=== PATIENT | female | born 1960 | race Caucasian/White ===

== ENCOUNTER 2018-01-20 08:54 | Outpatient (CLI) | payer OTHER | END 2018-01-20 09:00 | disposition home or self-care (01) | LOC: NUCLEAR 08:54 | DX: K81.1 Chronic cholecystitis (principal); K30 Functional dyspepsia | CPT/HCPCS: 78227; A9537; J2805 ==

== ENCOUNTER 2021-02-09 08:12 | Outpatient (CLI) | payer OTHER | END 2021-02-09 08:18 | disposition home or self-care (01) | LOC: LAB 08:12 | DX: N39.0 Urinary tract infection, site not specified (principal); E11.9 Type 2 diabetes mellitus without complications; E78.2 Mixed hyperlipidemia; K71.6 Toxic liver disease with hepatitis, not elsewhere classified; M32.9 Systemic lupus erythematosus, unspecified ==

== ENCOUNTER 2021-04-15 13:10 | Outpatient (CLI) | payer OTHER | END 2021-04-15 13:24 | disposition home or self-care (01) | LOC: SONOGRAMA 13:10 → MAMO-SONO 13:15 → SONOGRAMA 13:24 | PROVIDERS: ATTEND Internal Medicine Cardiovascular Disease | DX: E04.2 Nontoxic multinodular goiter (principal); E05.80 Other thyrotoxicosis without thyrotoxic crisis or storm ==

== ENCOUNTER 2021-06-04 11:19 | Outpatient (CLI) | payer OTHER | END 2021-06-04 11:32 | disposition home or self-care (01) | LOC: MRI 11:19 | PROVIDERS: ATTEND Orthopaedic Surgery | DX: M25.562 Pain in left knee (principal); M94.262 Chondromalacia, left knee | CPT/HCPCS: 73721 ==

== ENCOUNTER 2021-07-26 11:30 | Outpatient (CLI) | payer OTHER | END 2021-07-26 11:36 | disposition home or self-care (01) | LOC: LAB 11:30 | PROVIDERS: ATTEND Internal Medicine Endocrinology, Diabetes & Metabolism | DX: E03.8 Other specified hypothyroidism (principal) ==

== ENCOUNTER 2021-09-20 12:12 | Outpatient (CLI) | payer OTHER | END 2021-09-20 12:19 | disposition home or self-care (01) | LOC: LAB 12:12 | PROVIDERS: ATTEND Internal Medicine Endocrinology, Diabetes & Metabolism | DX: E03.8 Other specified hypothyroidism (principal); E53.8 Deficiency of other specified B group vitamins ==

== ENCOUNTER 2021-12-13 08:43 | Outpatient (CLI) | payer OTHER | END 2021-12-13 09:21 | disposition home or self-care (01) | LOC: LAB 08:43 | PROVIDERS: ATTEND General Practice | DX: I11.9 Hypertensive heart disease without heart failure (principal); E11.69 Type 2 diabetes mellitus with other specified complication; N39.0 Urinary tract infection, site not specified; K62.5 Hemorrhage of anus and rectum; N18.30 Chronic kidney disease, stage 3 unspecified; D64.9 Anemia, unspecified; E55.9 Vitamin D deficiency, unspecified; B20 Human immunodeficiency virus [HIV] disease; A64 Unspecified sexually transmitted disease ==

== ENCOUNTER → 2021-12-13 | Outpatient (CLI) | payer OTHER | END | disposition home or self-care (01) | LOC: MAMO-SONO 11:11 | PROVIDERS: ATTEND General Practice | DX: E03.9 Hypothyroidism, unspecified (principal); E04.1 Nontoxic single thyroid nodule; E04.8 Other specified nontoxic goiter; E04.9 Nontoxic goiter, unspecified; R91.1 Solitary pulmonary nodule; Z13.820 Encounter for screening for osteoporosis; M85.9 Disorder of bone density and structure, unspecified; Z12.39 Encounter for other screening for malignant neoplasm of breast; Z12.31 Encounter for screening mammogram for malignant neoplasm of breast; M19.072 Primary osteoarthritis, left ankle and foot ==

== ENCOUNTER 2021-12-18 11:51 | Outpatient (CLI) | payer OTHER | END 2021-12-18 15:55 | disposition home or self-care (01) | LOC: LAB 11:51 | PROVIDERS: ATTEND Specialist | DX: E11.69 Type 2 diabetes mellitus with other specified complication (principal); I11.9 Hypertensive heart disease without heart failure; E78.49 Other hyperlipidemia; N39.0 Urinary tract infection, site not specified; E03.9 Hypothyroidism, unspecified; K62.5 Hemorrhage of anus and rectum; N18.30 Chronic kidney disease, stage 3 unspecified; D64.9 Anemia, unspecified; E55.9 Vitamin D deficiency, unspecified; B20 Human immunodeficiency virus [HIV] disease; A64 Unspecified sexually transmitted disease ==

== ENCOUNTER 2021-12-23 09:41 | Outpatient (CLI) | payer OTHER | END 2021-12-23 09:43 | disposition home or self-care (01) | LOC: LAB 09:41 | PROVIDERS: ATTEND Internal Medicine Endocrinology, Diabetes & Metabolism | DX: E55.9 Vitamin D deficiency, unspecified (principal) ==

== ENCOUNTER 2021-12-23 11:10 | Outpatient (CLI) | payer OTHER | END 2021-12-23 11:13 | disposition home or self-care (01) | LOC: NUCLEAR 11:10 | PROVIDERS: ATTEND General Practice | DX: M81.0 Age-related osteoporosis without current pathological fracture (principal) ==

== ENCOUNTER → 2022-04-23 09:53 | Outpatient (CLI) | payer OTHER | END | disposition home or self-care (01) | LOC: LAB 09:53 | PROVIDERS: ATTEND Internal Medicine | DX: E05.90 Thyrotoxicosis, unspecified without thyrotoxic crisis or storm (principal); I10 Essential (primary) hypertension ==

== ENCOUNTER 2022-05-28 07:10 | Outpatient (CLI) | payer OTHER | END 2022-05-28 07:12 | disposition home or self-care (01) | LOC: NUCLEAR 07:10 | PROVIDERS: ATTEND General Practice | DX: M81.0 Age-related osteoporosis without current pathological fracture (principal) | CPT/HCPCS: 78315; A9503 ==

== ENCOUNTER → 2023-09-09 | Outpatient (CLI) | payer OTHER | END | disposition home or self-care (01) | LOC: NUCLEAR 07:00 | PROVIDERS: ATTEND Internal Medicine | DX: E05.90 Thyrotoxicosis, unspecified without thyrotoxic crisis or storm (principal) ==

== ENCOUNTER 2023-09-10 07:12 | Outpatient (CLI) | payer OTHER | END 2023-09-10 07:13 | disposition home or self-care (01) | LOC: NUCLEAR 07:12 | PROVIDERS: ATTEND Internal Medicine | DX: E05.90 Thyrotoxicosis, unspecified without thyrotoxic crisis or storm (principal) ==

== ENCOUNTER 2023-12-14 12:56 | Outpatient (CLI) | payer OTHER | END 2023-12-14 12:59 | disposition home or self-care (01) | LOC: NUCLEAR 12:56 | PROVIDERS: ATTEND Internal Medicine Sports Medicine | DX: E05.90 Thyrotoxicosis, unspecified without thyrotoxic crisis or storm (principal); E04.1 Nontoxic single thyroid nodule; E04.9 Nontoxic goiter, unspecified ==

== ENCOUNTER 2025-06-19 10:17 | Outpatient (CLI) | payer OTHER | END 2025-06-19 10:26 | disposition home or self-care (01) | LOC: MAMO-SONO 10:17 | DX: N60.21 Fibroadenosis of right breast (principal); N60.22 Fibroadenosis of left breast ==